=== PATIENT | male | born 1950 | race Caucasian/White ===

== ENCOUNTER 2022-11-19 11:46 | Day surgery (SDC) | payer MEDICARE, SELFPAY ==
[2022-11-12 11:53] VITALS: BMI 26.5
[2022-11-13 11:49] VITALS: BMI 26.5
[2022-11-19 12:10] VITALS: BP 115/90; PULSE 109; RESP 16; O2SAT 100; BMI 25.2
--- NOTE | 2022-11-19 12:16 | WPDANESEPPF ---
Anes - Initial Pre Proc Eval Procedure: Operation Date: 11/19/22 13:30 Proposed Procedures p Diagnostic Colonoscopy - Tyson Aaron MD Date/Time: 11/19/22 12:16 Surgeon: Tyson Aaron MD Pre Op Diagnosis: Other Fecal Abnormalities Patient Data Age: 72 Gender: M Height: 1.78 m Weight: 79.6 kg Last Vital Signs Pulse 109 H 11/19/22 12:10 Resp 16 11/19/22 12:10 BP 115/90 11/19/22 12:10 Pulse Ox 100 11/19/22 12:10 O2 Del Method Room Air 11/19/22 12:10 Allergies Allergy/AdvReac Type Severity Reaction Status Date / Time No Known Allergies Allergy Verified 11/19/22 12:09 Home Medications Medication Instructions Recorded Confirmed Type No Home Medications 11/19/22 11/19/22 History Patient hx anesthesia problems: none Family hx anesthesia problems: none Results Review: All pre-operative results and documents have been reviewed as part of the pre-operative evaluation. [facility] Past Medical History Medical History Anxiety Arthritis Bilateral shoulder pain BMI 27.0-27.9,adult Elevated blood pressure reading in office with diagnosis of hypertension Encounter for wellness examination Encounter to establish care Hernia (~1994) History of high blood pressure History of skin cancer Mixed hyperlipidemia Positive colorectal cancer screening using Cologuard test Skin cancer Surgical History Surgical History History of surgical removal of meniscus of knee Social History Social History Smoking status: Never smoker Alcohol intake: current Drinks per week: 14 Alcohol use details: wine daily Substance use: never Substance use type: does not use Living arrangements: with family Spiritual care concerns: No Anes - Eval Final PreProcedure Day of Procedure 11/19/22 12:16 Patient weight: normal Heart: regular rate and rhythm Lungs: clear to auscultation Airway: Mallampati scale class II Neurological: alert and oriented Last oral intake: >/= 8 hours ASA classification: III Emergent: no Anesthetic plan: proceed Anesthesia type and monitoring: general GIVS and standard monitoring Results Review: All pre-operative results and documents have been reviewed as part of the pre-operative evaluation. Informed Consent: The patient's anesthetic plan and its attendant risks and benefits were discussed with the patient/family/POA. Questions were solicited and answers provided to the satisfaction of the patient/family/POA.
[2022-11-19] MEDS: LACTATED RINGERS 1,000 ML 150 ML IV CONT (12:23)
--- NOTE | 2022-11-19 12:48 | PM.HPGS ---
History of Present Illness History of Present Illness Consent: Risks, benefits, and alternatives have been discussed and questions answered. Patient agrees to proceed with procedure. Chief complaint: Other Fecal Abnormalities Narrative: Jayden Yan is a 72 year old male here for first colonoscopy, had + cologuard Review of Systems Constitutional: Constitutional: Denies headache(s) and Denies weakness Eyes: Eyes: Denies blurry vision ENT: Reports Normal hearing present, Denies headache(s) and Denies neck pain Cardiovascular: Cardiovascular: Denies chest pain and Denies dyspnea Respiratory: Respiratory: Denies dyspnea Gastrointestinal: Gastrointestinal: Reports no additional gastrointestinal complaints Genitourinary: Genitourinary: Denies dysuria Musculoskeletal: Musculoskeletal: Denies neck pain Integumentary/Breasts: Skin/Breast: Denies dry skin Neurologic: Reports Normal hearing present, Denies headache(s) and Denies weakness Psychiatric: Psychiatric: Denies anxiety Endocrine: Endocrine: Denies change in body appearance Hematologic/Lymphatic: Hematologic/Lymphatic: Denies easy bleeding Allergic/Immunologic: Allergic/Immunologic: Denies urticaria PMFSH Past Medical History Medical History Anxiety Arthritis Bilateral shoulder pain BMI 27.0-27.9,adult Elevated blood pressure reading in office with diagnosis of hypertension Encounter for wellness examination Encounter to establish care Hernia (~1994) History of high blood pressure History of skin cancer Mixed hyperlipidemia Positive colorectal cancer screening using Cologuard test Skin cancer Surgical History Surgical History History of surgical removal of meniscus of knee Social History Social History Smoking status: Never smoker Alcohol intake: current Drinks per week: 14 Alcohol use details: wine daily Substance use: never Substance use type: does not use Living arrangements: with family Spiritual care concerns: No Meds Home Medications and Allergies Home Medications Medication Instructions Recorded Confirmed Type No Home Medications 11/19/22 11/19/22 History Allergies Allergy/AdvReac Type Severity Reaction Status Date / Time No Known Allergies Allergy Verified 11/19/22 12:09 Vital Signs Vital Signs - 24 hr 11/19/22 12:10 Pulse Rate 109 H Respiratory Rate 16 Blood Pressure 115/90 Pulse Oximetry 100 Oxygen Delivery Room Air Exam Const: General: comfortable and no acute distress HENMT: Face/Nose/Sinus: Normal nares present Eyes: General: appearance normal, both eyes and all related structures Neck: Neck: no JVD Resp: Auscultation: clear to auscultation bilaterally Cardio: Rate: regular rate Rhythm: regular rhythm GI: Inspection: non-distended GI Palp: Yes Soft to palpation Skin: General skin exam: normal color Neuro: General: gait normal Speech: normal speech Extrem: General: normal to inspection Psych: Mental Status: mental status grossly normal Assessment and Plan Assessment and plan (1) Positive colorectal cancer screening using Cologuard test: Code(s): R19.5 - Other fecal abnormalities Status: Acute Assessment and Plan: colonoscopy
[2022-11-19 13:19] VITALS: BP 105/70; PULSE 62; RESP 16; O2SAT 97
[2022-11-19 13:29] VITALS: BP 121/89; PULSE 80; RESP 16; O2SAT 97
--- NOTE | 2022-11-19 13:30 | WPDANESPN ---
Anes - Prog Note Post-Op Date/Time: 11/19/22 13:30 Cardiovascular status: normal Respiratory status: normal Airway patency: baseline Mental status: baseline Post-Op hydration status: normal Vital Signs: Last Vital Signs Pulse 62 11/19/22 13:19 Resp 16 11/19/22 13:19 BP 105/70 11/19/22 13:19 Pulse Ox 97 11/19/22 13:19 O2 Del Method Room Air 11/19/22 13:19 Pain Score (VAS): 0 I/O: Intake & Output 11/18/22 11/19/22 11/19/22 23:59 07:59 15:59 Intake Total 400 Balance 400 Patient Feedback: Patient satisfied with anesthetic care.
[2022-11-19 13:39] VITALS: BP 130/92; PULSE 83; RESP 16; O2SAT 99
== END 2022-11-19 13:50 | disposition home or self-care (01) ==
PROVIDERS: PCP Family Medicine; Visit Provider Internal Medicine Gastroenterology
PROC: 0DJD8ZZ Inspection of Lower Intestinal Tract, Via Natural or Artificial Opening Endoscopic (ICD-10-PCS; CPT 45378; principal; 2022-11-19 13:30)
DX: R19.5 Other fecal abnormalities (principal); K64.8 Other hemorrhoids
CPT/HCPCS: 45378

== ENCOUNTER 2023-02-06 02:18 | Day surgery (SDC) | payer MEDICARE, SELFPAY ==
[2023-01-21 12:32] VITALS: BMI 25.9
--- NOTE | 2023-02-04 09:23 | SUR.PREOP ---
Patient called regarding upcoming procedure. Reviewed preop instructions, appointment times, and procedure prep.
[2023-02-06 09:12] VITALS: BP 138/94; PULSE 65; RESP 18; TEMP 36.4; O2SAT 99
--- NOTE | 2023-02-06 09:22 | WPDHPUPDATE1 ---
History and Physical Update Update Date/Time: 02/06/23 09:22 History and Physical has been reviewed, including an updated exam of the patient. There are NO changes in the patient's condition. Risks, benefits, and alternatives have been discussed and questions answered. Patient agrees to proceed with procedure.
--- NOTE | 2023-02-06 09:23 | W.PM.PROC2 ---
Procedure Note - Detailed Date of Procedure 02/06/23 Pre-op Diagnosis Unspecified hemorrhoids Post-op Diagnosis Same Procedure Performed irc of internal hemorrhoids Surgeon Tyson Aaron MD Anesthesia None Indications hemorrhoids Findings no tear, no fissure, no bleeding. Found grade II internal hemorrhoids with anoscope, then introduced IRC probe and hemorrhoids treated for 1.5 seconds x6 Description of Procedure irc of internal hemorrhoids
== END 2023-02-06 02:19 | disposition home or self-care (01) ==
PROVIDERS: PCP Nurse Practitioner Family; Visit Provider Internal Medicine Gastroenterology
PROC: (CPT 46930; principal; 2023-02-06 14:00)
DX: K64.1 Second degree hemorrhoids (principal); I10 Essential (primary) hypertension; E78.2 Mixed hyperlipidemia; F41.9 Anxiety disorder, unspecified; Z85.828 Personal history of other malignant neoplasm of skin
CPT/HCPCS: 46930

== ENCOUNTER 2023-04-22 01:00 | Day surgery (SDC) | payer MEDICARE, SELFPAY ==
[2023-04-03 10:35] VITALS: BMI 25.9
--- NOTE | 2023-04-19 13:05 | SUR.PREOP ---
Patient called regarding upcoming procedure. Reviewed preop instructions, appointment times.
--- NOTE | 2023-04-22 13:30 | PM.HPGS ---
History of Present Illness History of Present Illness Consent: Risks, benefits, and alternatives have been discussed and questions answered. Patient agrees to proceed with procedure. Chief complaint: Unspecified hemorrhoids Narrative: Jayden Yan is a 73 year old male with hemorrhoids and bulging sensation, treated with IRC few months ago Review of Systems Review of Systems: All systems reviewed & are unremarkable except as noted in HPI and below PMFSH Past Medical History Medical History (Updated 04/01/23 @ 10:03 by Tyson Aaron MD) Anxiety Arthritis Bilateral shoulder pain BMI 27.0-27.9,adult Elevated blood pressure reading in office with diagnosis of hypertension Encounter for wellness examination Encounter to establish care Hemorrhoids Hernia (~1994) History of high blood pressure History of skin cancer Mixed hyperlipidemia Positive colorectal cancer screening using Cologuard test Colonoscopy 11/19/2022 was normal with recheck in 10 years. Skin cancer Surgical History Surgical History History of surgical removal of meniscus of knee Social History Social History Smoking status: Never smoker Alcohol intake: current Drinks per week: 14 Alcohol use details: wine Substance use: never Substance use type: does not use Living arrangements: with family Spiritual care concerns: No Meds Home Medications and Allergies Home Medications Medication Instructions Recorded Confirmed Type hydrocortisone acetate 25 mg 25 mg RECTAL BID #12 ea 01/16/23 04/03/23 Rx rectal suppository (Anusol-HC) hydrocortisone 2.5 % topical cream 1 applic RECTAL BID PRN 02/06/23 04/03/23 Rx with perineal applicator hemorrhoids #30 grams (Anusol-HC) Allergies Allergy/AdvReac Type Severity Reaction Status Date / Time No Known Allergies Allergy Verified 04/22/23 13:18 Exam Const: General: comfortable and no acute distress HENMT: Face/Nose/Sinus: Normal nares present Eyes: General: appearance normal, both eyes and all related structures Neck: Neck: no JVD Resp: Auscultation: clear to auscultation bilaterally Cardio: Rate: regular rate Rhythm: regular rhythm GI: Inspection: non-distended GI Palp: Yes Soft to palpation Skin: General skin exam: normal color Neuro: General: gait normal Speech: normal speech Extrem: General: normal to inspection Psych: Mental Status: mental status grossly normal Assessment and Plan Assessment and plan (1) Hemorrhoids: Code(s): K64.9 - Unspecified hemorrhoids Status: Acute Assessment and Plan: irc treatment
--- NOTE | 2023-04-22 13:31 | W.PM.PROC2 ---
Procedure Note - Detailed Date of Procedure 04/22/23 Pre-op Diagnosis Unspecified hemorrhoids Post-op Diagnosis Same Procedure Performed irc of internal hemorrhoids Surgeon Tyson Aaron MD Anesthesia None Findings small size internal hemorrhoids Description of Procedure anoscope introduced and found small size internal hemorrhoids, no lesion, no fissure. Then advanced IRC probe and hemorrhoid treated for 1.5 seconds x5
--- NOTE | 2023-04-22 13:50 | SUR.PREOP ---
Times - 1320 Time Out Called: 1321 Procedure Start: 1322 Procedure End: 1325 Position and Devices - Position: LEFT LATERAL Positioning Devices: Pre-Procedure Assessment - Site and Procedure Verified w Patient and/or Others as Appropriate: Y Verification Coincides w Consent, H&P, Endoscopy Schedule, and Pre-Op Orders: Y X-Rays/Imaging Studies in Room and/or Implants on Site: Y Verified Operative Side Marked YES When Applicable: ERNIE Preop Assessment Completed By: ADRIENNE CORBIN - Entire Operative Team Participates and Confirms: Y Correct Patient, Procedure, Side/Site and Position: Y Availability of Implants, Special Equipment and Requests: Y Preop Antibiotics Given within 1 Hour of Incision: N Assessment of Skin Prep Dry Time: NA Prep = Surgery Prep Solution: NA Site Prepped: NA Prepped By: ERNIE Staff - Optical Effects Layout Person: ADRIENNE CORBIN Pipe Threading Machine Operator: Non Pharmacy Medications - Time: Name: Strength: Dose: Route: Site: Given By: Lot Number: Expiration Date: Actual Procedures - Description: IRC HEMORRHOID TREATMENT Side: Wound Class: Surgeon: KRISTEN Severity: Preop Diagnosis: HEMORRHOIDS Postop Diagnosis: HEMORRHOIDS Transfer Data - Destination: HOME Transfer Method: Complications: Untoward Events: Report Given To: Completed Date/Time: 89704/22/23 Completed By: JOIE GÓMEZ
== END 2023-04-22 13:42 | disposition home or self-care (01) ==
PROVIDERS: PCP Nurse Practitioner Family; Visit Provider Internal Medicine Gastroenterology
PROC: (CPT 46930; principal; 2023-04-22 14:00)
DX: K64.8 Other hemorrhoids (principal); F41.9 Anxiety disorder, unspecified; I10 Essential (primary) hypertension; E78.2 Mixed hyperlipidemia; Z98.890 Other specified postprocedural states; Z85.828 Personal history of other malignant neoplasm of skin
CPT/HCPCS: 46930

== ENCOUNTER 2023-07-01 01:22 | Day surgery (SDC) | payer MEDICARE, SELFPAY ==
[2023-06-27 09:50] VITALS: BMI 26.3
[2023-07-01 11:53] VITALS: BP 153/89; PULSE 55; RESP 18; TEMP 36.6; O2SAT 100
--- NOTE | 2023-07-01 12:14 | PM.HPGS ---
History of Present Illness History of Present Illness Consent: Risks, benefits, and alternatives have been discussed and questions answered. Patient agrees to proceed with procedure. Chief complaint: Hemorrhoids unspecified Narrative: Jayden Yan is a 73 year old male here for IRC, ?hemorrhoids and bulging sensation, treated with IRC few months ago that helped. Review of Systems Review of Systems: All systems reviewed & are unremarkable except as noted in HPI and below PMFSH Past Medical History Medical History (Updated 04/01/23 @ 10:03 by Tyson Aaron MD) Anxiety Arthritis Bilateral shoulder pain BMI 27.0-27.9,adult Elevated blood pressure reading in office with diagnosis of hypertension Encounter for wellness examination Encounter to establish care Hemorrhoids Hernia (~1994) History of high blood pressure History of skin cancer Mixed hyperlipidemia Positive colorectal cancer screening using Cologuard test Colonoscopy 11/19/2022 was normal with recheck in 10 years. Skin cancer Surgical History Surgical History History of surgical removal of meniscus of knee Social History Social History Smoking status: Never smoker Alcohol intake: current Drinks per week: 14 Alcohol use details: wine Substance use: never Substance use type: does not use Living arrangements: with family Spiritual care concerns: No Meds Home Medications and Allergies Home Medications Medication Instructions Recorded Confirmed Type hydrocortisone acetate 25 mg 25 mg RECTAL BID #12 ea 01/16/23 06/27/23 Rx rectal suppository (Anusol-HC) hydrocortisone 2.5 % topical cream 1 applic RECTAL BID PRN 02/06/23 06/27/23 Rx with perineal applicator hemorrhoids #30 grams (Anusol-HC) Allergies Allergy/AdvReac Type Severity Reaction Status Date / Time No Known Allergies Allergy Verified 07/01/23 11:51 Vital Signs Vital Signs - 24 hr 07/01/23 11:53 Temperature 97.8 F Pulse Rate 55 L Respiratory Rate 18 Blood Pressure 153/89 H Pulse Oximetry 100 Oxygen Delivery Room Air Exam Const: General: comfortable and no acute distress HENMT: Face/Nose/Sinus: Normal nares present Eyes: General: appearance normal, both eyes and all related structures Neck: Neck: no JVD Resp: Auscultation: clear to auscultation bilaterally Cardio: Rate: regular rate Rhythm: regular rhythm GI: Inspection: non-distended GI Palp: Yes Soft to palpation Skin: General skin exam: normal color Neuro: General: gait normal Speech: normal speech Extrem: General: normal to inspection Psych: Mental Status: mental status grossly normal Assessment and Plan Assessment and plan (1) Hemorrhoids: Code(s): K64.9 - Unspecified hemorrhoids Status: Acute Assessment and Plan: IRC of internal hemorrhoids
--- NOTE | 2023-07-01 12:15 | W.PM.PROC2 ---
Procedure Note - Detailed Date of Procedure 07/01/23 Pre-op Diagnosis Hemorrhoids unspecified Post-op Diagnosis Same Procedure Performed irc of internal hemorrhoids Surgeon Tyson Aaron MD Anesthesia None Findings grade II internal hemorrhoids Description of Procedure used anoscope, noted grade II internal hemorrhoids, no fissure, no bleeding. Then introduced IRC probe and hemorrhoids treated at 1.5 seconds x7
== END 2023-07-01 12:10 | disposition home or self-care (01) ==
PROVIDERS: PCP Nurse Practitioner Family; Visit Provider Internal Medicine Gastroenterology
PROC: (CPT 46930; principal; 2023-07-01 12:00)
DX: K64.1 Second degree hemorrhoids (principal); R03.0 Elevated blood-pressure reading, without diagnosis of hypertension; F41.9 Anxiety disorder, unspecified; E78.2 Mixed hyperlipidemia; Z98.890 Other specified postprocedural states; Z85.828 Personal history of other malignant neoplasm of skin
CPT/HCPCS: 46930

== ENCOUNTER 2023-08-28 00:46 | Day surgery (SDC) | payer MEDICARE, SELFPAY ==
[2023-08-21 17:02] VITALS: BMI 24.2
[2023-08-28 08:52] VITALS: BP 149/88; PULSE 57; RESP 16; TEMP 36.6; O2SAT 100
--- NOTE | 2023-08-28 09:46 | PM.HPGS ---
History of Present Illness History of Present Illness Consent: Risks, benefits, and alternatives have been discussed and questions answered. Patient agrees to proceed with procedure. Chief complaint: Hemorrhoids Narrative: Jayden Yan is a 73 year old male here for IRC, ?hemorrhoids and bulging sensation, treated with IRC which has been helping. Review of Systems Review of Systems: All systems reviewed & are unremarkable except as noted in HPI and below PMFSH Past Medical History Medical History (Updated 04/01/23 @ 10:03 by Tyson Aaron MD) Anxiety Arthritis Bilateral shoulder pain BMI 27.0-27.9,adult Elevated blood pressure reading in office with diagnosis of hypertension Encounter for wellness examination Encounter to establish care Hemorrhoids Hernia (~1994) History of high blood pressure History of skin cancer Mixed hyperlipidemia Positive colorectal cancer screening using Cologuard test Colonoscopy 11/19/2022 was normal with recheck in 10 years. Skin cancer Surgical History Surgical History History of surgical removal of meniscus of knee Social History Social History Smoking status: Never smoker Alcohol intake: current Drinks per week: 14 Alcohol use details: WINE Substance use: never Substance use type: does not use Living arrangements: with family Spiritual care concerns: No Meds Home Medications and Allergies Home Medications Medication Instructions Recorded Confirmed Type hydrocortisone acetate 25 mg 25 mg RECTAL BID #12 ea 01/16/23 06/27/23 Rx rectal suppository (Anusol-HC) hydrocortisone 2.5 % topical cream 1 applic RECTAL BID PRN 08/28/23 08/28/23 Rx with perineal applicator hemorrhoids #30 grams (Anusol-HC) Allergies Allergy/AdvReac Type Severity Reaction Status Date / Time No Known Allergies Allergy Verified 08/28/23 08:48 Vital Signs Vital Signs - 24 hr 08/28/23 08:52 Temperature 98 F Pulse Rate 57 L Respiratory Rate 16 Blood Pressure 149/88 H Pulse Oximetry 100 Oxygen Delivery Room Air Exam Const: General: comfortable and no acute distress HENMT: Face/Nose/Sinus: Normal nares present Eyes: General: appearance normal, both eyes and all related structures Neck: Neck: no JVD Resp: Auscultation: clear to auscultation bilaterally Cardio: Rate: regular rate Rhythm: regular rhythm GI: Inspection: non-distended GI Palp: Yes Soft to palpation Skin: General skin exam: normal color Neuro: General: gait normal Speech: normal speech Extrem: General: normal to inspection Psych: Mental Status: mental status grossly normal Assessment and Plan Assessment and plan (1) Hemorrhoids: Code(s): K64.9 - Unspecified hemorrhoids Status: Acute Assessment and Plan: irc today
--- NOTE | 2023-08-28 09:47 | W.PM.PROC2 ---
Procedure Note - Detailed Date of Procedure 08/28/23 Pre-op Diagnosis Hemorrhoids Post-op Diagnosis Same Procedure Performed irc of internal hemorrhoids Surgeon Tyson Aaron MD Anesthesia None Findings grade II internal hemorrhoids Description of Procedure using anoscope noted small internal hemorrhoids, no bleeding, no fissure. Then advanced IRC probe and hemorrhoids treated for 1.5 sec x6
== END 2023-08-28 09:38 | disposition home or self-care (01) ==
PROVIDERS: PCP Nurse Practitioner Family; Visit Provider Internal Medicine Gastroenterology
PROC: (CPT 46930; principal; 2023-08-28 09:00)
DX: K64.1 Second degree hemorrhoids (principal)
CPT/HCPCS: 46930

== ENCOUNTER 2023-12-07 14:12 | Emergency (ER) | payer MEDICARE, SELFPAY ==
[2023-12-07 14:16] VITALS: BP 166/91; PULSE 69; RESP 14; TEMP 36.7; O2SAT 99
--- NOTE | 2023-12-07 15:15 | ED.GENADULT ---
HPI - General Adult General Chief complaint: Skin/Abscess/Foreign Body Stated complaint: hemorrhoid Time Seen by Provider: 12/07/23 14:46 History of Present Illness HPI narrative: 73-year-old male with history of hemorrhoids presenting to the emergency department for a hemorrhoid. Patient does have a longstanding history of hemorrhoids but felt that 1 was larger today. patient states he did try to squeeze it and felt that become softer. Patient states that did not rupture and had no bleeding. Patient does follow-up with GI for hemorrhoid treatment Related Data Allergies Allergy/AdvReac Type Severity Reaction Status Date / Time No Known Allergies Allergy Verified 11/18/23 08:07 Review of Systems Review of Systems: All systems reviewed & are unremarkable except as noted in HPI and below PMFSH Past Medical History Medical History (Updated 12/07/23 @ 15:17 by Elvis Ravi MD) Anxiety Arthritis Bilateral shoulder pain BMI 26.0-26.9,adult BMI 27.0-27.9,adult Elevated blood pressure reading in office with diagnosis of hypertension Encounter for wellness examination Encounter to establish care Hemorrhoids Hernia (~1994) History of high blood pressure History of skin cancer Mixed hyperlipidemia Positive colorectal cancer screening using Cologuard test Colonoscopy 11/19/2022 was normal with recheck in 10 years. Skin cancer Surgical History Surgical History History of surgical removal of meniscus of knee Social History Social History Smoking status: Never smoker Alcohol intake: current Drinks per week: 14 Alcohol use details: WINE Substance use: never Substance use type: does not use Living arrangements: with family Spiritual care concerns: No Exam Narrative: APPEARANCE: Well appearing, no pain, no distress, well-nourished. HEAD: normocephalic, atraumatic. EYES: PERRLA/EOMI, conjunctivae clear. NOSE: Normal no drainage EARS:TMS clear with good light reflex. THROAT: Pharynx clear, no exudate. NECK: Supple. No adenopathy, no masses. RESPIRATORY: Airway patent, respirations nonlabored. Clear to auscultation bilaterally, no rales, rhonchi, wheezing. CARDIOVASCULAR: Regular rate and rhythm without murmurs rubs or gallops. ABDOMINAL: Soft, nontender, nondistended, normal bowel sounds MUSCULOSKELETAL: Moves all extremities. Strength/ROM intact, No edema, No calf tenderness. NEURO: Alert. Cranial nerves II through XII intact. Good gait. Good coordination SKIN: Warm, dry. Normal Color rectal exam: External hemorrhoid small thrombosis, no tenderness to palpation, no active bleeding Course Vital Signs Vital signs: Vital Signs Temperature 98.0 F 12/07/23 14:16 Pulse Rate 69 12/07/23 14:16 Respiratory Rate 14 12/07/23 14:16 Blood Pressure 166/91 H 12/07/23 14:16 Pulse Oximetry 99 12/07/23 14:16 Temperature 98.0 F 12/07/23 14:16 Pulse Rate 69 12/07/23 14:16 Respiratory Rate 14 12/07/23 14:16 Blood Pressure 166/91 H 12/07/23 14:16 Pulse Oximetry 99 12/07/23 14:16 Medical Decision Making MDM Narrative Medical decision making narrative: 73-year-old male presents emergency department for evaluation for a hemorrhoid. Hemorrhoid is not thrombosed and does not appear to be infected. No tenderness to palpation. Patient will have follow-up with GI. Vital Signs Vital Signs: Vital Signs Temperature 98.0 F 12/07/23 14:16 Pulse Rate 69 12/07/23 14:16 Respiratory Rate 14 12/07/23 14:16 Blood Pressure 166/91 H 12/07/23 14:16 Pulse Oximetry 99 12/07/23 14:16 Temperature 98.0 F 12/07/23 14:16 Pulse Rate 69 12/07/23 14:16 Respiratory Rate 14 12/07/23 14:16 Blood Pressure 166/91 H 12/07/23 14:16 Pulse Oximetry 99 12/07/23 14:16 Discharge Plan Discharge Clinical Impression: Hemorrhoids Patient Disposit
== END 2023-12-07 15:28 | disposition home or self-care (01) ==
PROVIDERS: Emergency Provider Emergency Medicine; PCP Nurse Practitioner Family
DX: K64.9 Unspecified hemorrhoids (principal); I10 Essential (primary) hypertension; E78.2 Mixed hyperlipidemia; M19.90 Unspecified osteoarthritis, unspecified site; Z85.828 Personal history of other malignant neoplasm of skin
CPT/HCPCS: 99281

== ENCOUNTER 2023-12-23 01:37 | Day surgery (SDC) | payer MEDICARE, SELFPAY ==
[2023-12-11 14:19] VITALS: BMI 26.5
[2023-12-23 12:10] VITALS: BP 157/87; PULSE 60; RESP 16; TEMP 36.3; O2SAT 100; BMI 26.5
--- NOTE | 2023-12-23 12:36 | PM.HPGS ---
History of Present Illness History of Present Illness Consent: Risks, benefits, and alternatives have been discussed and questions answered. Patient agrees to proceed with procedure. Chief complaint: IRC Narrative: Jayden Yan is a 73 year old male here for IRC, ?hemorrhoids and bulging sensation, treated with IRC which has been helping. Review of Systems Review of Systems: All systems reviewed & are unremarkable except as noted in HPI and below PMFSH Past Medical History Medical History (Updated 12/07/23 @ 15:17 by Elvis Ravi MD) Anxiety Arthritis Bilateral shoulder pain BMI 26.0-26.9,adult BMI 27.0-27.9,adult Elevated blood pressure reading in office with diagnosis of hypertension Encounter for wellness examination Encounter to establish care Hemorrhoids Hernia (~1994) History of high blood pressure History of skin cancer Mixed hyperlipidemia Positive colorectal cancer screening using Cologuard test Colonoscopy 11/19/2022 was normal with recheck in 10 years. Skin cancer Surgical History Surgical History History of surgical removal of meniscus of knee Social History Social History Smoking status: Never smoker Alcohol intake: current Drinks per week: 6 Alcohol use details: WINE Substance use: current Substance use type: marijuana Other substance usage details: on weekends Living arrangements: with family Spiritual care concerns: No Meds Home Medications and Allergies Home Medications Medication Instructions Recorded Confirmed Type hydrocortisone 2.5 % topical cream 1 applic RECTAL BID PRN 08/28/23 12/23/23 Rx with perineal applicator hemorrhoids #30 grams (Anusol-HC) Allergies Allergy/AdvReac Type Severity Reaction Status Date / Time No Known Allergies Allergy Verified 12/23/23 12:14 Vital Signs Vital Signs - 24 hr 12/23/23 12:10 Temperature 97.3 F L Pulse Rate 60 Respiratory Rate 16 Blood Pressure 157/87 H Pulse Oximetry 100 Oxygen Delivery Room Air Exam Const: General: comfortable and no acute distress HENMT: Face/Nose/Sinus: Normal nares present Eyes: General: appearance normal, both eyes and all related structures Neck: Neck: no JVD Resp: Auscultation: clear to auscultation bilaterally Cardio: Rate: regular rate Rhythm: regular rhythm GI: Inspection: non-distended GI Palp: Yes Soft to palpation Skin: General skin exam: normal color Neuro: General: gait normal Speech: normal speech Extrem: General: normal to inspection Psych: Mental Status: mental status grossly normal Assessment and Plan Assessment and plan (1) Hemorrhoids: Code(s): K64.9 - Unspecified hemorrhoids Status: Acute Assessment and Plan: irc of internal hemorrhoids
--- NOTE | 2023-12-23 12:38 | W.PM.PROC2 ---
Procedure Note - Detailed Date of Procedure 12/23/23 Pre-op Diagnosis IRC Post-op Diagnosis Same Procedure Performed irc of internal hemorrhoids Surgeon Tyson Aaron MD Anesthesia None Findings small size hemorrhoids Description of Procedure I used anoscopy and noted small size internal hemorrhoids, no bleeding, no fissure. Then advanced IRC probe and hemorrhoids treated for 1.5sec x6
== END 2023-12-23 12:40 | disposition home or self-care (01) ==
PROVIDERS: PCP Nurse Practitioner Family; Visit Provider Internal Medicine Gastroenterology
PROC: (CPT 46930; principal; 2023-12-23 12:30)
DX: K64.8 Other hemorrhoids (principal); F41.9 Anxiety disorder, unspecified; I10 Essential (primary) hypertension; E78.2 Mixed hyperlipidemia; F12.90 Cannabis use, unspecified, uncomplicated; Z98.890 Other specified postprocedural states; Z85.828 Personal history of other malignant neoplasm of skin
CPT/HCPCS: 46930

== ENCOUNTER → 2024-03-31 10:31 | Outpatient (CLI) | payer MEDICARE, SELFPAY ==
--- NOTE | ~2024-03-31 | XR_ITS ---
Lumbosacral Spine: AP and lateral views Clinical History: Pain Findings: The normal lordotic curve is maintained. No fracture evident. Grade 1 anterolisthesis of L4 over L5 present. There is moderate degenerative disc narrowing from L3 through S1. There is advanced facet arthropathy from L4 through S1. The sacroiliac joints are normally outlined. Impression: Moderate to advanced degenerative spondylosis of the lower lumbar spine, as above. Grade 1 anterolisthesis of L4 over L5. Reviewed, dictated and finalized at location M. L MAKER Impression: Moderate to advanced degenerative spondylosis of the lower lumbar spine, as abo ve. Grade 1 anterolisthesis of L4 over L5.
--- NOTE | ~2024-03-31 | XR_ITS ---
AP view of the pelvis and AP and lateral views of the bilateral hips Clinical history: Pain Findings: No acute fracture or dislocation is seen. Osseous alignment is anatomic. There is moderate degenerative change of both hip joints. Soft tissues are unremarkable. Impression: Moderate degenerative change of both hip joints. Reviewed, dictated and finalized at location . EAR ENGINEERING TECHNICIAN Impression: Moderate degenerative change of both hip joints.
== END ==
LOC: EXPTRAD 10:32
PROVIDERS: PCP Nurse Practitioner Family; Visit Provider Nurse Practitioner Family
DX: M47.816 Spondylosis without myelopathy or radiculopathy, lumbar region (principal); M43.16 Spondylolisthesis, lumbar region; M16.0 Bilateral primary osteoarthritis of hip
CPT/HCPCS: 72100; 73521

== ENCOUNTER 2024-04-08 11:46 | Outpatient (CLI) | payer MEDICARE, SELFPAY ==
--- NOTE | 2024-04-08 12:01 | ECG_ITS ---
Test Date: 2024-04-08 12:13:08 Measurements Intervals [place] Rate: 57 P: 23 WA: 152 QRS: 15 QRSD: 118 T: 43 QT: 418 QTc: 409 Interpretive Statements SINUS BRADYCARDIA INTRAVENTRICULAR CONDUCTION DELAY EARLY PRECORDIAL R/S TRANSITION MINIMAL Q WAVES- HIGH LATERAL LEADS BASELINE ARTIFACT- I, III, AVR, AVL, AVF, V1, V3 BORDERLINE ECG No previous ECG available for comparison Electronically Signed On 04-08-2024 13:34:31 MOBILE HOME MECHANIC by Sy Jimenez D.O.
[2024-04-08 12:15] LABS: Albumin Level 4.3 g/dL (3.5-5.1); Estimated Glomerular Filt Rate > 60; Glucose 96 mg/dL (65-110)
== END 2024-04-08 11:47 | disposition home or self-care (01) ==
PROVIDERS: PCP Nurse Practitioner Family; Visit Provider Physician Assistant Surgical
DX: E55.9 Vitamin D deficiency, unspecified (principal); M16.0 Bilateral primary osteoarthritis of hip; E78.2 Mixed hyperlipidemia; Z86.79 Personal history of other diseases of the circulatory system; I45.9 Conduction disorder, unspecified
CPT/HCPCS: 36415; 82040; 82565; 82947; 93005

== ENCOUNTER 2024-05-27 07:42 | Outpatient (CLI) | payer MEDICARE, SELFPAY ==
[2024-05-27 09:47] LABS: Basophils Absolute Auto 0.1 K/mm3 (0.0-0.1); Basophils Percent Auto 0.6 % (0.2-1.2); Eosinophils Absolute Auto 0.1 K/mm3 (0-0.3); Eosinophils Percent Auto 1.5 % (0-4.4); Hematocrit 43.2 % (42.0-52.0); Hemoglobin 14.2 g/dL (14.0-18.0); Immature Granulocyte Absolute 0.03 K/mm3 (0.00-0.031); Immature Granulocyte Percent A 0.4 % (0-0.5); Lymphocytes Absolute Auto 1.66 K/mm3 (0.9-3.2); Lymphocytes Percent Auto 20.5 % (18.3-44.2); Mean Corpuscular HGB Conc 32.9 g/dl (32-36); Mean Corpuscular Hemoglobin 30.2 pg (26-34); Mean Corpuscular Volume 91.9 fl (80-100); Mean Platelet Volume 9.7 fl (7.4-10.4); Monocytes Absolute Auto 0.7 K/mm3 (0.1-0.6); Monocytes Percent Auto 8.9 % (2.6-8.5); Neutrophils Absolute Auto 5.5 K/mm3 (1.3-6.7); Neutrophils Percent Auto 68.1 % (45.5-73.1); Platelet Count Result 227 k/mm3 (150-375); Red Cell Distribution Width 12.7 % (11.5-14.5); White Blood Count 8.1 K/mm3 (4.5-10.0)
[2024-05-27 09:49] LABS: Albumin Level 4.7 g/dL (3.5-5.1); Estimated Glomerular Filt Rate > 60; Glucose 83 mg/dL (65-110)
[2024-05-27 09:52] LABS: Hemoglobin A1C 5.3 % (<5.7)
[2024-05-27 09:55] LABS: Urine Cotinine NEGATIVE
[2024-05-27 11:00] LABS: MRSA (PCR) NOT DETECTED (NOT DETECTE)
== END 2024-05-27 07:43 | disposition home or self-care (01) ==
LOC: ANHSURGERY 07:47
PROVIDERS: PCP Nurse Practitioner Family; Visit Provider Orthopaedic Surgery
DX: M16.12 Unilateral primary osteoarthritis, left hip (principal); Z01.818 Encounter for other preprocedural examination
CPT/HCPCS: 80307; 82040; 82565; 82947; 83036; 85025; 87641

== ENCOUNTER 2024-06-23 00:53 | Day surgery (SDC) | payer MEDICARE, SELFPAY ==
--- NOTE | 2024-05-27 07:59 | PC.NURSE ---
Addendum entered by Evelyn Hardy RN 05/27/24 09:05: BP ELEVATED THROUGHOUT PAT INTERVIEW. PT DENIES HEADACHE, CHEST PAIN, SHORTNESS OF BREATH. PT IS CALLING PRIMARY FROM THE WAITING ROOM WITH BP READINGS AND REQUESTING OFFICE VISIT. WILL CALL IF/WHEN BP MEDICATION IS ORDERED BY PRIMARY. INSTR TO GO TO ER FOR ANY CARDIAC SYMPTOMS, HE RELAYS UNDERSTANDING. Original Note: Report to the Outpatient Waiting Room, entrance under the green pavilion located off [address], at time ___8:30am____ on date ___06/23/24____. Planned Procedure Time: ___10:30am .? Time changes happen often and if your time is changed the preop area will call you the afternoon before. - You and your visitor will be asked to self-screen and do not enter if you have any COVID symptoms. Please call surgeon if you need to reschedule. - A mask is optional within the hospital at this time. Patients may have clear liquids (water, carbonated beverages, clear teas, apple juice) until 3 hours prior to surgery (7:30am) with a maximum of 20 ounces. - No food from midnight until time of surgery and no smoking, or chewing tobacco (or any form of nicotine). No chewing gum, candy or mints. Take only the following medications with a SIP of water on the morning of surgery: ____none DO NOT STOP ANY OF YOUR OTHER PRESCRIPTION MEDICATIONS PRIOR TO SURGERY EXCEPT THE FOLLOWING Hold all vitamins and supplements for 3 days per anesthesiologist. Medications to discontinue per physician __hold all nsaids (ibuprofen) 7 days pre-op per dr reese Date to take last dose____06/15/24 Please no make-up, nail gambian, hairspray, perfume, deodorant, or body powder the day of surgery.? No jewelry (including any body piercings) or valuables the day of surgery, leave them at home.? Please take a shower or bath the night before, or the morning of, surgery with an antibacterial soap.? Wear comfortable, loose fitting clothing.? - Jewelry must be removed prior to entering the operating room.? Rings and piercings that are not removed may be cut off. - The hospital will not accept responsibility for valuables.? - Please leave all valuables, including medications, at home the day of surgery. If you are going home after surgery, a licensed medical van driver must drive you home.? - NO public transportation without another adult if you receive anesthesia. - We recommend that an adult stay with you for 24 hours following discharge. - We also recommend that you do not drive, make important decision, drink alcoholic beverages, or take any drugs that were not prescribed by your health care provider for at least 24 hours after your discharge time. Follow any additional instructions given to you from your surgeon. Telephone instructions given to ____patient and asked if any additional questions and then verbalized understanding. Patient advised to call surgeon office or pre surgery nurse liaison [phone] if any additional questions.
[2024-05-27 08:08] VITALS: BP 180/95; PULSE 55; RESP 16; TEMP 36.7; O2SAT 99; BMI 26.5
[2024-05-27 08:20] VITALS: BP 175/90
[2024-05-27 08:45] VITALS: BP 199/106
[2024-06-23] VITALS (15 sets, daily range): BP systolic 143–174; BP diastolic 80–99; PULSE 58–105; RESP 14–20; TEMP 36.1–37.1; O2SAT 94–100; BMI 26.4
--- NOTE | ~2024-06-23 | XR_ITS ---
XR hip LT min 2V Ordering provider: Quentin Moe MD History: . POST OP LEFT JUNIOR . Comparison: None. FINDINGS: BONES: No acute fracture or dislocation. HIP JOINT SPACES: Left hip arthroplasty. PUBIC SYMPHYSIS: Normal. SOFT TISSUES: Normal. IMPRESSION: No acute osseous abnormality. Left hip arthroplasty. Reviewed, dictated and finalized at location A.
--- NOTE | 2024-06-23 07:26 | WPDHPUPDATE1 ---
History and Physical Update Update Date/Time: 06/23/24 07:26 History and Physical has been reviewed, including an updated exam of the patient. There are NO changes in the patient's condition. Risks, benefits, and alternatives have been discussed and questions answered. Patient agrees to proceed with procedure.
[2024-06-23] MEDS: LACTATED RINGERS 1,000 ML 30 ML IV CONT ×2 (09:20→12:05)
[2024-06-23] MEDS: TRANEXAMIC ACID 1,000MG/ISO100 1,000 MG/100 ML BAG 200 MG IVPB (09:25)
--- NOTE | 2024-06-23 09:29 | WPDANESEPPF ---
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 Patient Data Age: 74 Gender: M Height: 1.78 m Weight: 84 kg Last Vital Signs Temp 98.0 F 05/27/24 08:08 Pulse 55 L 05/27/24 08:08 Resp 16 05/27/24 08:08 BP 199/106 H 05/27/24 08:45 Pulse Ox 99 05/27/24 08:08 O2 Del Method Room Air 05/27/24 08:08 Allergies Allergy/AdvReac Type Severity Reaction Status Date / Time No Known Allergies Allergy Verified 06/15/24 08:08 Home Medications ?Medication ?Instructions ?Recorded ?Confirmed ?Type acetaminophen 500 mg tablet 1,000 mg PO Q6H PRN pain 05/27/24 06/15/24 History (Acetaminophen Extra Strength) amlodipine 5 mg tablet 5 mg PO DAILY #30 tabs 05/28/24 06/15/24 Rx buspirone 5 mg tablet See Rx Instructions PO BID anxiety 06/22/24 Rx #100 tabs Patient hx anesthesia problems: none Family hx anesthesia problems: none Results Review: All pre-operative results and documents have been reviewed as part of the pre-operative evaluation. [facility] Past Medical History Medical History Hypertension Low back pain radiating to both legs Bilateral hip pain BMI 26.0-26.9,adult Hemorrhoids Positive colorectal cancer screening using Cologuard test Colonoscopy 11/19/2022 was normal with recheck in 10 years. Bilateral shoulder pain Mixed hyperlipidemia BMI 27.0-27.9,adult Elevated blood pressure reading in office with diagnosis of hypertension Encounter to establish care Encounter for wellness examination History of skin cancer Anxiety History of high blood pressure Skin cancer Arthritis Hernia (~1994) Surgical History Surgical History History of surgical removal of meniscus of knee Social History Social History Smoking status: Never smoker Alcohol intake: current Drinks per week: 6 Alcohol use details: WINE Substance use: current Substance use type: marijuana Other substance usage details: on weekends Living arrangements: with family Additional living arrangements comments: SPOUSE Spiritual care concerns: No Anes - Eval Final PreProcedure Day of Procedure 06/23/24 09:29 Patient weight: normal and overweight Lungs: normal air movement Airway: Mallampati scale class II and special considerations (Missing several teeth throughout, none loose per pt. ) Neurological: alert and oriented Last oral intake: >/= 8 hours ASA classification: II Emergent: no Anesthetic plan: proceed Anesthesia type and monitoring: general ETT and standard monitoring Results Review: All pre-operative results and documents have been reviewed as part of the pre-operative evaluation. HTN, hyperlipidemia, pt overall active, limited by knee/hip pain. Informed Consent: The patient's anesthetic plan and its attendant risks and benefits were discussed with the patient/family/POA. Questions were solicited and answers provided to the satisfaction of the patient/family/POA.
[2024-06-23] MEDS: ceFAZolin 2 GM/D5W 50 ML 2 GM/50 ML BAG IVPB ×2 (09:51→16:47)
[2024-06-23] MEDS: SODIUM CHLORIDE 0.9% IV 37.7 ML, MORPHINE SULFATE INJ (*CRX) 2 MG, ROPivacaine HCL 1% 2... INFILTRATE (10:29)
[2024-06-23] MEDS: TRANEXAMIC ACID 1,000 MG/10 ML AMPUL 1000 MG IV PUSH (11:48)
[2024-06-23] MEDS: fentaNYL CITRATE INJ (*CRX) 100 MCG/2 ML VIAL 25 MCG IV PUSH ×4 (12:50→13:08)
[2024-06-23] MEDS: oxyCODONE/ACETAMINOPHEN (*CRX) 5-325 MG TABLET 1 TABLET PO (14:30)
[2024-06-23] MEDS: ACETAMINOPHEN 325 MG TABLET 650 MG PO ×2 (14:30→21:31)
--- NOTE | 2024-06-23 14:39 | ADMGEN ---
This patient, Jayden Yan, was admitted to [facility] Surg Room 329-01. Patient/family oriented to hospital policies and general routines including ID bracelet, bed and alarms, visiting hours, pain management, procedures, bathroom and other care routines, personal items, smoking policy, room service/diet, and visiting hours. Information on how to activate the Rapid Response Team has been discussed. Patient/Family are encouraged to report perceived risks to care and to ask questions if they do not understand what they are told or what they should do.
--- NOTE | 2024-06-23 15:48 | P.OP_ITS ---
Procedure Note - Detailed Date of Procedure 06/23/24 Pre-op Diagnosis Left hip degenerative arthritis. Post-op Diagnosis Same Procedure Performed Left Total Hip Arthroplasty Surgeon Quentin Moe MD Networking Technology Instructor Dorota Valentine PA-C Anesthesia General Description of Procedure The patient was given preoperative antibiotics. A general anesthetic was administered. The patient was carefully placed in the lateral decubitus position on the PEG board. The shoulders and hips were carefully positioned for component and leg length positioning reference. The hip was prepped and draped in the usual sterile fashion. A longitudinal incision was created over the posterior aspect of the greater trochanter. Careful dissection was brought down through the deep fascia with electrocautery. A minimally invasive optimized posterior approach to the hip was performed. The short external rotators and capsule were taken down in an L-shaped capsulotomy. The tissue was tagged for later repair using number 2 high strength suture. The femoral neck was measured and taken in situ. The femoral head was removed. The acetabulum was carefully exposed. The inferior capsule was released. The labrum was resected. The acetabulum was sequentially reamed to the intended cup size. The cup was impacted into position with excellent press-fit. Typical anatomic landmarks, including the bony contact points as well as the inferior transverse acetabular ligament were used to confirm cup positioning with preoperative templating. Attention was turned to the femur, which was carefully exposed. The hip was reamed and then broached sequentially. Excellent press-fit was obtained with the broach. The hip was trialed. Measurements were utilized, including the lesser trochanter as well as the center of the femoral head and the tip of the trochanter, and excellent assessment of the offset and leg lengths were confirmed. The real component was impacted into position. Trialing confirmed appropriate leg length and offset with soft tissue balancing as well apparent feel of the leg, both at the knee and the heel. Soft tissues were assessed using the the iliotibial band. Reduction of the posterior capsule and external rotators were also used as a secondary assessment. The hip was copiously irrigated with pulsatile lavage periodically throughout the procedure. The real components were then assembled and reduced. The hip was stable throughout typical maneuvers, including extension, external rotation to 70 degrees, the position of sleep as well as flexion to 90 degrees with internal rotation past 35 degrees. The shake test confirmed stability without impingement. Osteophytes were removed as necessary. The short external rotators and capsule were repaired back to the posterior trochanter through drill holes. The deep fascia was repaired with running number 2 barbed suture, followed by 2-0 Stratafix suture and 3-0 Stratafix suture in the dermis. Steri-Strips were placed on the skin, followed by a sterile occlusive dressing. There were no complications. Meticulous hemostasis was maintained with the AquaMantys device. The patient was brought to the recovery room in stable condition. There were no complications. Physician urology physician assistant, Dorota Valentine PA-C, required for surgery; including patient positioning, draping, tissue retraction, maintaining instrument position, hip dislocation/ relocation, wound closure, and dressing placement. Implants The [place] Insignia hip stem, high offset size 6 , was utilized with excellent press-fit. The 52 mm Trident II acetabular component was impacted with excellent press-fit stability. 10 degree elevated polyethylene liner the +5, 36 mm Biolox ceramic femoral head was utilized. Estimated Blood Loss 200 Urine Output 275 Drains No Packing No Pathology None sent Complications No immediate complications Condition Stable Disposition PACU [facility] Billing Surgery - Charge Forward: Surgery Billing
[2024-06-23] MEDS: ONDANSETRON INJ 4 MG/2 ML VIAL IV PUSH (15:59)
[2024-06-23] MEDS: MELOXICAM 7.5 MG TABLET PO (16:46)
[2024-06-23] MEDS: SENNA/DOCUSATE SODIUM TABLET 2 TAB PO (16:46)
[2024-06-23] MEDS: ASPIRIN 81 MG ENTERIC TABLET PO (21:31)
[2024-06-23] MEDS: FAMOTIDINE 20 MG TABLET PO (21:31)
[2024-06-24] MEDS: ceFAZolin 2 GM/D5W 50 ML 2 GM/50 ML BAG IVPB ×2 (00:10→09:59)
[2024-06-24 03:57] VITALS: BP 157/86; PULSE 85; RESP 18; TEMP 36.2; O2SAT 97
[2024-06-24] MEDS: ACETAMINOPHEN 325 MG TABLET 650 MG PO ×2 (05:22→09:58)
[2024-06-24 07:37] LABS: Basophils Percent Auto 0.2 % (0.2-1.2); Eosinophils Percent Auto 0.1 % (0-4.4); Hematocrit 38.9 % (42.0-52.0); Hemoglobin 12.9 g/dL (14.0-18.0); Immature Granulocyte Absolute 0.04 K/mm3 (0.00-0.031); Immature Granulocyte Percent A 0.3 % (0-0.5); Lymphocytes Absolute Auto 1.36 K/mm3 (0.9-3.2); Mean Corpuscular HGB Conc 33.2 g/dl (32-36); Mean Corpuscular Hemoglobin 30.3 pg (26-34); Mean Corpuscular Volume 91.3 fl (80-100); Mean Platelet Volume 9.7 fl (7.4-10.4); Monocytes Absolute Auto 1.5 K/mm3 (0.1-0.6); Monocytes Percent Auto 11.7 % (2.6-8.5); Neutrophils Absolute Auto 9.5 K/mm3 (1.3-6.7); Neutrophils Percent Auto 76.7 % (45.5-73.1); Platelet Count Result 214 k/mm3 (150-375); Red Blood Count 4.26 M/mm3 (4.6-6.20); Red Cell Distribution Width 12.9 % (11.5-14.5); White Blood Count 12.4 K/mm3 (4.5-10.0)
[2024-06-24 07:50] LABS: Anion Gap 9 mmol/L (4-12); Blood Urea Nitrogen 13 mg/dL (9-20); Calcium 9.1 mg/dL (8.4-10.2); Carbon Dioxide 27 mmol/L (22-30); Chloride 105 mmol/L (98-107); Estimated CRCL calculation 60 ml/min; Estimated Glomerular Filt Rate > 60; Glucose 126 mg/dL (65-110); Sodium 141 mmol/L (137-145)
[2024-06-24] MEDS: polyethylene glycoL 3350 17 GM POWD.PACK PO (09:58)
[2024-06-24] MEDS: SENNA/DOCUSATE SODIUM TABLET 2 TAB PO (09:58)
[2024-06-24] MEDS: MELOXICAM 7.5 MG TABLET PO (09:58)
[2024-06-24] MEDS: FAMOTIDINE 20 MG TABLET PO (09:58)
[2024-06-24] MEDS: oxyCODONE/ACETAMINOPHEN (*CRX) 5-325 MG TABLET 1 TABLET PO (09:58)
[2024-06-24] MEDS: ASPIRIN 81 MG ENTERIC TABLET PO (09:59)
== END 2024-06-24 13:15 | disposition home or self-care (01) ==
LOC: ANHSURGERY 09:48 → ANH3MEDSUR 14:14
PROVIDERS: Physician Assistant Surgical; PCP Nurse Practitioner Family; Visit Provider Orthopaedic Surgery
PROC: (CPT 27130; principal; 2024-06-23 10:30)
DX: M16.12 Unilateral primary osteoarthritis, left hip (principal); F12.90 Cannabis use, unspecified, uncomplicated
CPT/HCPCS: 27130; 36415; 73502; 80048; 85025; 86850; 86900; 86901; 97110; 97116; 97161; 97165; 97530; 97535; A9270; C1713; J0171; J0690; J1100; J1171; J1885; J2003; J2270; J2405; J2704; J2795; J3010; J7120

== ENCOUNTER 2024-09-23 10:21 | Outpatient (CLI) | payer MEDICARE, SELFPAY ==
[2024-09-23 10:51] LABS: Hematocrit 42.4 % (42.0-52.0); Hemoglobin 14.4 g/dL (14.0-18.0); Immature Granulocyte Percent A 0.3 % (0-0.5); Lymphocytes Absolute Auto 1.67 K/mm3 (0.9-3.2); Mean Corpuscular HGB Conc 34.0 g/dl (32-36); Mean Corpuscular Hemoglobin 30.5 pg (26-34); Mean Corpuscular Volume 89.8 fl (80-100); Nucleated Red Blood Cells Absolute Auto 0.000 K/mm3 (0.0-0.012); Nucleated Red Blood Cells Perc 0.0 % (0.0-0.2); Platelet Count Result 200 k/mm3 (150-375); Red Blood Count 4.72 M/mm3 (4.6-6.20); White Blood Count 7.6 K/mm3 (4.5-10.0)
[2024-09-23 11:16] LABS: Hemoglobin A1C 5.2 % (<5.7)
[2024-09-23 11:17] LABS: Albumin Level 4.3 g/dL (3.5-5.1); Estimated Glomerular Filt Rate > 60; Glucose 98 mg/dL (65-110)
[2024-09-23 12:16] LABS: MRSA (PCR) NOT DETECTED (NOT DETECTE)
== END 2024-09-23 10:22 | disposition home or self-care (01) ==
LOC: ANHSURGERY 10:24
PROVIDERS: PCP Nurse Practitioner Family; Visit Provider Orthopaedic Surgery
DX: M16.11 Unilateral primary osteoarthritis, right hip (principal); Z01.818 Encounter for other preprocedural examination
CPT/HCPCS: 80307; 82040; 82565; 82947; 83036; 85025; 86850; 86900; 86901; 87641

== ENCOUNTER 2024-09-29 02:36 | Day surgery (SDC) | payer MEDICARE, SELFPAY ==
[2024-09-21 13:55] VITALS: BMI 28.3
--- NOTE | 2024-09-21 14:20 | PC.NURSE ---
Report to the Outpatient Waiting Room, entrance under the green pavilion located off [facility], at time __8:30AM___ on date ___09/30/23__. Planned Procedure Time: __10:30AM____.? Time changes happen often and if your time is changed the preop area will call you the afternoon before. - You and your visitor will be asked to self-screen and do not enter if you have any COVID symptoms. Please call surgeon if you need to reschedule. - A mask is optional within the hospital at this time. Patients may have clear liquids (water, carbonated beverages, clear teas, apple juice) until 3 hours prior to surgery (7:30AM) with a maximum of 20 ounces. - No food from midnight until time of surgery and no smoking, or chewing tobacco (or any form of nicotine). No chewing gum, candy or mints. Take only the following medications with a SIP of water on the morning of surgery: ____AMLODIPINE, BUSPIRONE_ DO NOT STOP ANY OF YOUR OTHER PRESCRIPTION MEDICATIONS PRIOR TO SURGERY EXCEPT THE FOLLOWING Hold all vitamins and supplements for 3 days per anesthesiologist. Medications to discontinue per physician ___HOLD IBUPROFEN(ALL NSAIDs) 7 DAYS PRE-OP PER DR GONZALEZ_ Date to take last dose 09/21/24 Please no make-up, nail ecuadorean, hairspray, perfume, deodorant, or body powder the day of surgery.? No jewelry (including any body piercings) or valuables the day of surgery, leave them at home.? Please take a shower or bath the night before, or the morning of, surgery with an antibacterial soap.? Wear comfortable, loose fitting clothing.? - Jewelry must be removed prior to entering the operating room.? Rings and piercings that are not removed may be cut off. - The hospital will not accept responsibility for valuables.? - Please leave all valuables, including medications, at home the day of surgery. If you are going home after surgery, a licensed recycle driver must drive you home.? - NO public transportation without another adult if you receive anesthesia. - We recommend that an adult stay with you for 24 hours following discharge. - We also recommend that you do not drive, make important decision, drink alcoholic beverages, or take any drugs that were not prescribed by your health care provider for at least 24 hours after your discharge time. Follow any additional instructions given to you from your surgeon. Telephone instructions given to ____PATIENT and asked if any additional questions and then verbalized understanding. Patient advised to call surgeon office or pre surgery nurse liaison [phone] if any additional questions.
[2024-09-29] VITALS (19 sets, daily range): BP systolic 141–177; BP diastolic 80–107; PULSE 56–97; RESP 12–20; TEMP 36.2–37.3; O2SAT 93–100
--- NOTE | ~2024-09-29 | XR_ITS ---
EXAMINATION: XR hip RT min 2V DATE: 09/29/2024 12:45 INDICATION: Right total hip arthroplasty TECHNIQUE: 2 views right hip FINDINGS: There is a right total hip arthroplasty in expected position. Subcutaneous gas with soft t issue swelling are consistent with recent surgery. IMPRESSION: 1. Recent right total hip arthroplasty. Reviewed, dictated and finalized at location A.
--- NOTE | 2024-09-29 07:14 | WPDHPUPDATE1 ---
History and Physical Update Update Date/Time: 09/29/24 07:14 History and Physical has been reviewed, including an updated exam of the patient. There are NO changes in the patient's condition. Risks, benefits, and alternatives have been discussed and questions answered. Patient agrees to proceed with procedure.
[2024-09-29] MEDS: LACTATED RINGERS 1,000 ML 30 ML IV CONT ×2 (09:00→14:23)
[2024-09-29] MEDS: ACETAMINOPHEN 500 MG TABLET 1000 MG PO (09:25)
[2024-09-29] MEDS: TRANEXAMIC ACID 1,000MG/ISO100 1,000 MG/100 ML BAG 200 MG IVPB (09:25)
--- NOTE | 2024-09-29 09:28 | P.PNAN_ITS ---
Anes - Initial Pre Proc Eval Procedure: Operation Date: 09/29/24 10:30 Proposed Procedures p Right Total Hip Arthroplasty - Quentin Moe MD Date/Time: 09/29/24 09:28 Surgeon: Quentin Moe MD Pre Op Diagnosis: primary OA right hip Patient Data Age: 74 Gender: M Height: 1.75 m Weight: 87.1 kg Last Vital Signs Temp 98.4 F 09/29/24 09:20 Pulse 56 L 09/29/24 09:20 Resp 16 09/29/24 09:20 BP 152/83 H 09/29/24 09:20 Pulse Ox 99 09/29/24 09:20 O2 Del Method Room Air 09/29/24 09:20 Allergies Allergy/AdvReac Type Severity Reaction Status Date / Time No Known Allergies Allergy Verified 09/29/24 09:15 Home Medications ?Medication ?Instructions ?Recorded ?Confirmed ?Type amlodipine 5 mg tablet 5 mg PO DAILY #30 tabs 05/28/24 09/29/24 Rx buspirone 5 mg tablet See Rx Instructions PO BID anxiety 06/22/24 09/29/24 Rx #100 tabs ibuprofen 200 mg capsule 600 mg PO Q6H PRN pain 08/10/24 09/29/24 History acetaminophen 500 mg tablet 1,000 mg PO Q6H PRN pain 09/21/24 09/29/24 History (Acetaminophen Extra Strength) Patient hx anesthesia problems: none Family hx anesthesia problems: none Results Review: All pre-operative results and documents have been reviewed as part of the pre- operative evaluation. [facility] Past Medical History Medical History Hypertension Low back pain radiating to both legs Bilateral hip pain BMI 26.0-26.9,adult Hemorrhoids Positive colorectal cancer screening using Cologuard test Colonoscopy 11/19/2022 was normal with recheck in 10 years. Bilateral shoulder pain Mixed hyperlipidemia BMI 27.0-27.9,adult Elevated blood pressure reading in office with diagnosis of hypertension Encounter to establish care Encounter for wellness examination History of skin cancer Anxiety History of high blood pressure Skin cancer Arthritis Hernia (~1994) Surgical History Surgical History History of surgical removal of meniscus of knee Social History Social History Smoking status: Never smoker Alcohol intake: current Drinks per week: 1 Alcohol use details: WINE Substance use: current Substance use type: marijuana Other substance usage details: on weekends Do You Feel Safe in your Home?: Yes Lack of Transportation: No Lack of Food: Never True Current Housing: I Have Housing Concerned About Future Housing: No Difficulty Paying Gas/Electric Bills: No Difficulty Paying for Meds: No Currently Unemployed: No Education: Master's Degree or Higher Difficulty w/ Childcare or Family Care: No Living arrangements: with family Additional living arrangements comments: SPOUSE Spiritual care concerns: No Anes - Eval Final PreProcedure Day of Procedure 09/29/24 09:28 Patient weight: normal Lungs: normal air movement Airway: Mallampati scale class II and special considerations (Edentulous. ) Neurological: alert and oriented Last oral intake: >/= 8 hours ASA classification: II Emergent: no Anesthetic plan: proceed Anesthesia type and monitoring: general ETT and standard monitoring Results Review: All pre-operative results and documents have been reviewed as part of the pre- operative evaluation. HTN, borderline hyperlipidemia, no meds. Pt recovered well from contralateral hip sx 3 months ago. Informed Consent: The patient's anesthetic plan and its attendant risks and benefits were discussed with the patient/family/POA. Questions were solicited and answers provided to the satisfaction of the patient/family/POA.
[2024-09-29] MEDS: ceFAZolin 2 GM in SODIUM CHLORIDE 0.9% IV 50 ML 100 ML IVPB (10:02)
[2024-09-29] MEDS: SODIUM CHLORIDE 0.9% IV 37.7 ML, MORPHINE SULFATE INJ (*CRX) 2 MG, ROPivacaine HCL 1% 2... INFILTRATE (10:40)
[2024-09-29] MEDS: VANCOMYCIN HCL 1,000 MG VIAL 1000 MG TOPICAL (10:42)
--- NOTE | 2024-09-29 12:42 | W.PM.PROC2 ---
Procedure Note - Detailed Date of Procedure 09/29/24 Pre-op Diagnosis Right hip degenerative arthritis. Post-op Diagnosis Same Procedure Performed Right Total Hip Arthroplasty Surgeon Quentin Moe MD Anesthesia General Description of Procedure The patient was given preoperative antibiotics. A general anesthetic was administered. The patient was carefully placed in the lateral decubitus position on the PEG board. The shoulders and hips were carefully positioned for component and leg length positioning reference. The hip was prepped and draped in the usual sterile fashion. A longitudinal incision was created over the posterior aspect of the greater trochanter. Careful dissection was brought down through the deep fascia with electrocautery. A minimally invasive optimized posterior approach to the hip was performed. The short external rotators and capsule were taken down in an L-shaped capsulotomy. The tissue was tagged for later repair using number 2 high strength suture. The femoral neck was measured and taken in situ. The femoral head was removed. The acetabulum was carefully exposed. The inferior capsule was released. The labrum was resected. The acetabulum was sequentially reamed to the intended cup size. The cup was impacted into position with excellent press-fit. Typical anatomic landmarks, including the bony contact points as well as the inferior transverse acetabular ligament were used to confirm cup positioning with preoperative templating. Attention was turned to the femur, which was carefully exposed. The hip was reamed and then broached sequentially. Excellent press-fit was obtained with the broach. The hip was trialed. Measurements were utilized, including the lesser trochanter as well as the center of the femoral head and the tip of the trochanter, and excellent assessment of the offset and leg lengths were confirmed. The real component was impacted into position. Trialing confirmed appropriate leg length and offset with soft tissue balancing as well apparent feel of the leg, both at the knee and the heel. Soft tissues were assessed using the the iliotibial band. Reduction of the posterior capsule and external rotators were also used as a secondary assessment. The hip was copiously irrigated with pulsatile lavage periodically throughout the procedure. The real components were then assembled and reduced. The hip was stable throughout typical maneuvers, including extension, external rotation to 70 degrees, the position of sleep as well as flexion to 90 degrees with internal rotation past 35 degrees. The shake test confirmed stability without impingement. Osteophytes were removed as necessary. The short external rotators and capsule were repaired back to the posterior trochanter through drill holes. The deep fascia was repaired with running number 2 barbed suture, followed by 2-0 Stratafix suture and 3-0 Stratafix suture in the dermis. Steri-Strips were placed on the skin, followed by a sterile occlusive dressing. There were no complications. Meticulous hemostasis was maintained with the AquaMantys device. The patient was brought to the recovery room in stable condition. There were no complications. Implants The Sean Insignia hip stem, high offset size 7 , was utilized with excellent press-fit. The 52 mm Trident II acetabular component was impacted with excellent press-fit stability. 10 degree elevated polyethylene liner the +0, 36 mm Biolox ceramic femoral head was utilized. Estimated Blood Loss 350 Drains No Packing No Pathology None sent Complications No immediate complications Condition Stable Disposition PACU [facility] Billing Surgery - Charge Forward: Surgery Billing
[2024-09-29] MEDS: ceFAZolin 2 GM/D5W 50 ML 2 GM/50 ML BAG IVPB (17:43)
[2024-09-29] MEDS: SENNA/DOCUSATE SODIUM TABLET 2 TAB PO (17:43)
[2024-09-29] MEDS: ASPIRIN 81 MG ENTERIC TABLET PO (17:43)
[2024-09-29] MEDS: ACETAMINOPHEN 325 MG TABLET 650 MG PO (17:43)
[2024-09-29] MEDS: MELOXICAM 7.5 MG TABLET PO (17:43)
[2024-09-29] MEDS: SODIUM CHLORIDE 0.9% IV 1,000 ML 125 ML IV CONT (18:02)
[2024-09-29] MEDS: ONDANSETRON INJ 4 MG/2 ML VIAL IV PUSH (18:05)
[2024-09-29] MEDS: oxyCODONE/ACETAMINOPHEN (*CRX) 5-325 MG TABLET 1 TABLET PO (19:52)
[2024-09-29] MEDS: traMADol HCL (*CRX) 50 MG TABLET PO (22:24)
[2024-09-30] MEDS: ceFAZolin 2 GM/D5W 50 ML 2 GM/50 ML BAG IVPB ×2 (01:05→09:33)
[2024-09-30] MEDS: IBUPROFEN IV 800 MG/200 ML 800 MG/200 ML BAG 400 MG IVPB (01:06)
[2024-09-30] MEDS: ACETAMINOPHEN 325 MG TABLET 650 MG PO (01:47)
[2024-09-30] MEDS: ONDANSETRON INJ 4 MG/2 ML VIAL IV PUSH (02:19)
[2024-09-30 04:00] VITALS: BP 141/79; PULSE 76; RESP 16; TEMP 36.3; O2SAT 96
[2024-09-30 06:46] LABS: Hematocrit 38.9 % (42.0-52.0); Hemoglobin 13.2 g/dL (14.0-18.0); Immature Granulocyte Percent A 0.3 % (0-0.5); Lymphocytes Absolute Auto 1.08 K/mm3 (0.9-3.2); Mean Corpuscular HGB Conc 33.9 g/dl (32-36); Mean Corpuscular Hemoglobin 30.3 pg (26-34); Mean Corpuscular Volume 89.4 fl (80-100); Nucleated Red Blood Cells Absolute Auto 0.000 K/mm3 (0.0-0.012); Nucleated Red Blood Cells Perc 0.0 % (0.0-0.2); Platelet Count Result 179 k/mm3 (150-375); Red Blood Count 4.35 M/mm3 (4.6-6.20); White Blood Count 12.0 K/mm3 (4.5-10.0)
[2024-09-30 07:10] LABS: Anion Gap 7 mmol/L (4-12); Blood Urea Nitrogen 11 mg/dL (9-20); Calcium 8.9 mg/dL (8.4-10.2); Carbon Dioxide 23 mmol/L (22-30); Chloride 108 mmol/L (98-107); Estimated CRCL calculation 62 ml/min; Estimated Glomerular Filt Rate > 60; Glucose 133 mg/dL (65-110); Potassium 3.8 mmol/L (3.4-5.0); Sodium 138 mmol/L (137-145)
[2024-09-30 08:00] VITALS: BP 136/76; PULSE 86; RESP 16; TEMP 36.4; O2SAT 96
[2024-09-30] MEDS: SENNA/DOCUSATE SODIUM TABLET 2 TAB PO (08:12)
[2024-09-30] MEDS: ASPIRIN 81 MG ENTERIC TABLET PO (08:13)
[2024-09-30] MEDS: MELOXICAM 7.5 MG TABLET PO (08:13)
[2024-09-30] MEDS: oxyCODONE/ACETAMINOPHEN (*CRX) 5-325 MG TABLET 1 TABLET PO (09:32)
== END 2024-09-30 11:40 | disposition home or self-care (01) ==
LOC: ANHSURGERY 12:44 → ANH3MEDSUR 15:34
PROVIDERS: PCP Nurse Practitioner Family; Visit Provider Orthopaedic Surgery
PROC: (CPT 27130; principal; 2024-09-29 10:30)
DX: M16.11 Unilateral primary osteoarthritis, right hip (principal); M25.751 Osteophyte, right hip; I10 Essential (primary) hypertension; E78.2 Mixed hyperlipidemia; F41.9 Anxiety disorder, unspecified; F12.90 Cannabis use, unspecified, uncomplicated; Z79.1 Long term (current) use of non-steroidal anti-inflammatories (NSAID); Z98.890 Other specified postprocedural states; Z85.828 Personal history of other malignant neoplasm of skin; Z87.19 Personal history of other diseases of the digestive system
CPT/HCPCS: 27130; 36415; 73502; 80048; 85025; 86850; 86900; 86901; 97110; 97161; 97165; 97530; 97535; J0690; A9270; C1776; J0166; J1100; J1171; J1741; J1885; J2003; J2250; J2270; J2405; J2704; J2795; J3010; J3373; J7030; J7120